=== PATIENT | male | born 1960 | race African-American/Black ===

== ENCOUNTER 2023-08-13 18:18 | Inpatient (IN) | payer OTHER ==
[2023-08-13 19:59] VITALS: BMI 24.4
[2023-08-14] MEDS ORDERED: COLLOIDAL OATMEAL 1 BAR EACH TP PRN (00:01)
[2023-08-14] MEDS ORDERED: ACETAMINOPHEN 325 MG TABLET (FP) PO PRN (00:01)
[2023-08-14] MEDS ORDERED: BENZOCAINE/MENTHOL (CHLORASEPTIC ) LOZENGE MM PRN (00:01)
[2023-08-14] MEDS ORDERED: BENZONATATE 200 MG CAPSULE PO PRN (00:01)
[2023-08-14] MEDS ORDERED: MAGNESIUM HYDROX 2400MG/30ML ORAL SUSPENSION 30 ML CUP PO PRN (00:01)
[2023-08-14] MEDS ORDERED: NICOTINE POLACRILEX 2 MG GUM BUC PRN (00:01)
[2023-08-14] MEDS ORDERED: NALOXONE HCL (KLOXXADO) 8 MG SPRAY NS PRN (00:01)
[2023-08-14] MEDS ORDERED: LOPERAMIDE HCL 2 MG CAPSULE PO PRN (00:01)
[2023-08-14] MEDS ORDERED: IBUPROFEN 400 MG TABLET (FP) PO PRN (00:01)
[2023-08-14] MEDS ORDERED: POLYETHYLENE GLYCOL (HEALTHYLAX) 3350 17 GM PACKET PO PRN (00:01)
[2023-08-14] MEDS ORDERED: hydrOXYzine PAMOATE 25 MG CAPSULE (FP) PO PRN ×2 (00:01→10:43)
[2023-08-14] MEDS ORDERED: NALOXONE HCL 0.4 MG/ML VIAL IM PRN (00:01)
[2023-08-14] MEDS ORDERED: guaiFENesin 600 MG TABLET.ER (FP) PO PRN (00:01)
[2023-08-14] MEDS ORDERED: IBUPROFEN 600 MG TABLET (FP) PO PRN (00:01)
[2023-08-14] MEDS ORDERED: MAG HYDROX/AL HYDROX/SIMETH 30 ML UNIT-DOSE CUP PO PRN (00:01)
[2023-08-14] MEDS: PRENATAL VITAMINS W/ FOLIC ACID TABLET (FP) PO SCH (09:32)
[2023-08-14] MEDS: NICOTINE 14 MG/24 HOURS TOPICAL PATCH TD SCH (09:32)
[2023-08-14] MEDS ORDERED: MELATONIN 5 MG TABLETS PO PRN (11:20)
[2023-08-14] MEDS ORDERED: TUBERCULIN PPD 5 TU/0.1ML SYRINGE (IN PATIENT USE ONLY) ID ONE (12:00)
[2023-08-14] MEDS ORDERED: FLU VACCINE (FLULAVAL) PF 60 MCG/0.5 ML SYRINGE 2023-2024 IM ONE (12:00)
[2023-08-14] MEDS ORDERED: PNEUMOC 20-VAL CONJ-DIP CRM/PF 0.5 ML SYRINGE IM ONE (12:00)
[2023-08-14] MEDS ORDERED: TUBERCULIN PPD 5 TU/0.1ML VIAL ID ONE ×2 (12:21→13:15)
[2023-08-14 13:53] LABS: HIV INTERPRETATION NEGATIVE (NEGATIVE)
[2023-08-14] MEDS ORDERED: THIAMINE HCL 100 MG TABLET (FP) PO SCH (22:00)
[2023-08-14] MEDS ORDERED: MELATONIN 5 MG TABLETS PO SCH ×2 (22:00)
[2023-08-15 09:47] LABS: POTASSIUM 3.7 mmol/L (3.5-5.1)
[2023-08-15 09:49] LABS: CALCIUM 8.6 mg/dL (8.5-10.1)
[2023-08-15 09:50] LABS: BLOOD UREA NITROGEN 9.1 mg/dL (7-18)
[2023-08-15 09:53] LABS: CREATININE 0.6 mg/dL (0.55-1.3)
[2023-08-15 09:54] LABS: BILIRUBIN,TOTAL 2.1 mg/dL (0.2-1); TOT PROT 7.3 g/dl (6.4-8.2)
[2023-08-15] MEDS: PRENATAL VITAMINS W/ FOLIC ACID TABLET (FP) PO SCH (09:56)
[2023-08-15] MEDS: NICOTINE 14 MG/24 HOURS TOPICAL PATCH TD SCH (09:56)
[2023-08-15 10:05] LABS: HEMATOCRIT 34.4 % (35.4-49); MCH 27.7 pg (25.7-33.7); MEAN CELL VOLUME 86.5 fl (80-96); MEAN PLT VOLUME 9.7 fl (7.5-11.1); PLATELET COUNT 134 10^3/uL (134-434); RBC 3.98 M/mm3 (4.00-5.60); RDW 15.9 % (11.9-15.9)
[2023-08-15 10:09] LABS: WHITE BLOOD COUNT 1.5 K/mm3 (4.0-10.0)
[2023-08-15 11:54] VITALS: BP 137/72; PULSE 80; RESP 18; TEMP 97.7
== END 2023-08-15 17:53 | disposition left against medical advice (07) | DRG 894 ==
LOC: YASAS 18:18 → Y3E 08-14 03:07
PROVIDERS: ADMIT Allergy & Immunology; ATTEND Psychiatry & Neurology Pain Medicine
PROC: HZ42ZZZ Group Counseling for Substance Abuse Treatment, Cognitive-Behavioral (ICD-10-PCS; principal; 2023-08-14)
DX: F10.20 Alcohol dependence, uncomplicated (principal); F12.20 Cannabis dependence, uncomplicated; F17.210 Nicotine dependence, cigarettes, uncomplicated; F19.982 Other psychoactive substance use, unspecified with psychoactive substance-induced sleep disorder; F19.980 Other psychoactive substance use, unspecified with psychoactive substance-induced anxiety disorder; I10 Essential (primary) hypertension; G47.00 Insomnia, unspecified; K74.60 Unspecified cirrhosis of liver; D72.819 Decreased white blood cell count, unspecified; R94.5 Abnormal results of liver function studies; K21.9 Gastro-esophageal reflux disease without esophagitis
CPT/HCPCS: 36415; 80053; 80307; 85027; 86780; 87389; 87635; 87811; 90677; 90686; 93005; 93010; G0008